=== PATIENT | female | born 1965 | race Caucasian/White ===

== ENCOUNTER 2020-01-29 18:38 | Emergency (ER) | payer OTHER, SELFPAY ==
[~2020-01-29] VITALS: Ht 147.3 cm; Wt 71.7 kg
[2020-01-29 18:40] VITALS: Ht 147.3 cm; Wt 71.7 kg
[2020-01-29 20:26] VITALS: BP 131/61
== END 2020-01-29 20:26 | disposition home or self-care (01) ==
LOC: ED 18:38
DX: R05 Cough (principal); R09.81 Nasal congestion; M79.10 Myalgia, unspecified site
CPT/HCPCS: 36600